=== PATIENT | male | born 1980 | race Caucasian/White ===

== ENCOUNTER 2020-02-26 23:15 | Emergency (ER) | payer OTHER ==
[~2020-02-26] VITALS: Ht 180.3 cm; Wt 90.7 kg
[2020-02-26] MEDS ORDERED: ZOLOFT100 MG PO (23:27)
[2020-02-26] MEDS ORDERED: REMERON30 MG PO (23:27)
[2020-02-26] MEDS ORDERED: PROPRANOLOL HCL40 MG PO (23:28)
[2020-02-26] MEDS ORDERED: CHLORTHALIDONE25 MG PO (23:28)
[2020-02-26] MEDS ORDERED: ALPHA LIPOIC A300 MG PO (23:28)
== END 2020-02-27 04:46 | disposition short-term general hospital (02) ==
LOC: ED 23:15
DX: S02.652B Fracture of angle of left mandible, initial encounter for open fracture (principal); S02.66XB Fracture of symphysis of mandible, initial encounter for open fracture; S02.602B Fracture of unspecified part of body of left mandible, initial encounter for open fracture; I10 Essential (primary) hypertension; F32.9 Major depressive disorder, single episode, unspecified; Z23 Encounter for immunization; Z87.891 Personal history of nicotine dependence; Z88.0 Allergy status to penicillin; Z79.899 Other long term (current) drug therapy; W22.8XXA Striking against or struck by other objects, initial encounter
CPT/HCPCS: 70450; 70486; 72125; 80053; 85025; 90471; 90715; 96374; 96375; 96376; 99285-25; J1170; J2405; J3490